=== PATIENT | female | born 1980 | race American Indian/Alaskan Native ===

== ENCOUNTER 2020-08-31 06:07 | Day surgery (SDC) | payer MEDICAID ==
[~2020-08-31 06:07] MED LIST: ACETAMINOPHEN 500 MG TAB PO SCH; CELECOXIB 200 MG CAP PO NR; GABAPENTIN 300 MG CAP PO NR; LACTATED RINGERS 1,000 ML IV SCH; MIDAZOLAM 2 MG/2 ML INJ IV NR; SCOPOLAMINE TRANSDERMAL PATCH 72 HR TD NR; fentaNYL 100 MCG/2 ML INJ IV PRN
[2020-08-31] MEDS ORDERED: LIDOCAINE (1%) 10 MG/1 ML VIAL 20 ML MDV ONE (06:29)
[2020-08-31] MEDS ORDERED: BUPIVACAINE/PF (0.25%) 2.5 MG/ML 30 ML VIAL INFILTRATI ONE ×3 (06:29→07:59)
[2020-08-31] MEDS ORDERED: ceFAZolin/Water 2 GM/20 ML 2 GM/20 ML SYRINGE IV NR (07:00)
--- NOTE | 2020-08-31 07:14 | Anesthesia Consultation ---
Anesthesia Consult and Med Hx Date of service: 08/31/20 - Airway Anesthetic Teeth Evaluation: Good ROM Head & Neck: Adequate Mental/Hyoid Distance: Adequate Mallampati Class: Class II Intubation Access Assessment: Good - Pulmonary Exam CTA: Yes - Cardiac Exam Cardiac Exam: RRR - Pre-Operative Health Status ASA Pre-Surgery Classification: ASA1 Proposed Anesthetic Plan: General - Pulmonary Hx Smoking: No Hx Sleep Apnea: Yes (DX SLEEP APNEA-RESOLVED 2-3 YRS AGO) - Cardiovascular System Hx Hypertension: No - Central Nervous System Hx Psychiatric Problems: No - Other Systems Hx Cancer: No Hx Obesity: Yes
--- NOTE | 2020-08-31 07:15 | Anesthesia Day of Surgery ---
Anesthesia Day of Surgery - Day of Surgery Patient Examined: Yes Patient H&P Reviewed: Yes Patient is NPO: Yes
[2020-08-31] MEDS ORDERED: ONDANSETRON 4 MG/2 ML INJ IV PRN (07:26)
[2020-08-31] MEDS ORDERED: HYDROmorphone 1 MG/1 ML INJ IV PRN (07:26)
[2020-08-31] MEDS ORDERED: MIDAZOLAM 2 MG/2 ML INJ ONE (07:26)
[2020-08-31] MEDS ORDERED: propofoL 200 MG/20 ML VIAL IV ONE (07:27)
[2020-08-31] MEDS ORDERED: fentaNYL 100 MCG/2 ML INJ ONE (07:27)
[2020-08-31] MEDS ORDERED: KETOROLAC 30 MG/1 ML INJ ONE (07:30)
[2020-08-31] MEDS ORDERED: dexAMETHasone 20 MG/5 ML VIAL ONE (07:30)
[2020-08-31] MEDS ORDERED: ONDANSETRON 4 MG/2 ML INJ ONE (07:30)
[2020-08-31] MEDS ORDERED: LIDOCAINE (1%) 10 MG/1 ML VIAL 20 ML MDV INFILTRATI ONE ×2 (07:58)
--- NOTE | 2020-08-31 08:35 | Short Stay Summary ---
Short Stay Documentation Date of service: 08/31/20 - History Principal diagnosis: umbilical hernia H&P: obtained from office - Allergies and Medications Current Medications: Allergies No Known Allergies Allergy (Verified 08/23/20 14:07) Home Medications Medication Instructions Recorded Confirmed Last Taken Type No Known Home Medications [No 08/23/20 08/31/20 Unknown History Reported Home Medications] Active Medications Acetaminophen (Tylenol) 1,000 mg PO PREOP MANDA Stop: 08/31/20 20:00 Last Admin: 08/31/20 07:15 Dose: 1,000 mg Documented by: Celecoxib (Celebrex) 200 mg PO PREOP NR Stop: 08/31/20 20:00 Last Admin: 08/31/20 07:15 Dose: 200 mg Documented by: Fentanyl (Sublimaze) 100 mcg IV ONCE PRN PRN Reason: sedation for nerve block Stop: 08/31/20 20:00 Gabapentin (Gabapentin) 600 mg PO PREOP NR Stop: 08/31/20 20:00 Last Admin: 08/31/20 07:15 Dose: 600 mg Documented by: Hydromorphone HCl (Dilaudid) 0.5 mg IV Q10MIN PRN PRN Reason: Pain , Severe (7-10) Lactated Ringer's (Lactated Ringers) 1,000 mls @ 100 mls/hr IV DIRECT MANDA Stop: 08/31/20 23:59 Last Admin: 08/31/20 07:20 Dose: 100 mls/hr Documented by: Cefazolin Sodium (Ancef/Sterile Water 2 Gm/20 Ml) 2 gm in 20 mls @ 80 mls/hr IV PREOP NR Stop: 08/31/20 20:00 Midazolam HCl (Versed) 2 mg IV PREOP NR Stop: 08/31/20 20:00 Ondansetron HCl (Zofran) 4 mg IV ONCE PRN PRN Reason: Nausea And Vomiting Scopolamine (Transderm-Scop) 1 each TD PREOP NR Stop: 08/31/20 23:00 Last Admin: 08/31/20 07:15 Dose: 1 each Documented by: - Brief post op/procedure progress note Date of procedure: 08/31/20 Pre-op diagnosis: umbilical hernia Post-op diagnosis: same Procedure: open primary repair of umbilical hernia Anesthesia: GETA, local Findings: <0.5cm umbilical hernia defect Surgeon: JAYDE FLEMING Estimated blood loss: minimal Pathology: none Specimen disposition: to lab Condition: stable - Hospital course Hospital course: Pt observed in PACU and discharged to home in stable condition when criteria met - Disposition Condition at discharge: Good Disposition: DC-01 TO HOME OR SELFCARE Short Stay Discharge Plan Activity: other (see printed discharge instructions) Diet: regular Wound: open to air, per your surgeon's advice Additional Instructions: SEE PRINTED DISCHARGE INSTRUCTIONS Follow up with: YADI BALDERAS MD [Primary Care Provider] - 7 Days JAYDE FLEMING DO [Staff Physician] - 14 Days () Prescriptions: Ibuprofen [Motrin 800 MG tab] 800 mg PO Q8HR PRN #30 tablet PRN Reason: Pain, Moderate (4-6) HYDROcodone/APAP 5-325 [Aldrich 5/325] 1 each PO Q6HR PRN #20 tablet PRN Reason: Pain , Severe (7-10)
[2020-08-31] MEDS ORDERED: MEPERIDINE 25 MG/1 ML INJ IV PRN (08:51)
[2020-08-31] MEDS ORDERED: HYDROcodone/ACETAMINOPHEN 5-325 MG TAB PO PRN (09:08)
[2020-08-31 10:02] VITALS: BP 123/56
--- NOTE | 2020-08-31 10:59 | Post Anesthesia Evaluation ---
- Post Anesthesia Evaluation Patient Participated: Yes Airway Patent: Yes Stable Respiratory Function: Yes Nausea/Vomiting: No Temp > 96.8F: Yes Pain Manageable: Yes Adequeate Hydration: Yes Anesthesia Complications: No
--- NOTE | 2020-08-31 13:38 | Operative Report ---
Operative Report Operative Report: Date of procedure: 08/31/20 Pre-op diagnosis: umbilical hernia Post-op diagnosis: same Procedure: open primary repair of umbilical hernia Anesthesia: GETA, local Findings: <0.5cm umbilical hernia defect Surgeon: JAYDE FLEMING Estimated blood loss: minimal Pathology: none Specimen disposition: to lab Condition: stable Hospital course: Pt observed in PACU and discharged to home in stable condition when criteria met HPI indication: Patient is a 39 yo F who presented to the surgery clinic as a referral from Dr. Valverde with an umbilical hernia. The patient was concerned and wanted this addressed. The hernia defect was palpable and measured 0.5 cm. The indications for surgery were discussed with patient and she was given the option for surgery vs observation. She elected to proceed to surgical repair. As the hernia was very small I discussed with the patient the liklihood of closing the defect with suture. The use of mesh was also discussed as a possibility if the defect was found to be larger than anticipated. All risk, benefits, alternatives to surgery discussed with patient questions answered. Consent was obtained. Procedure in detail: Patient was identified in the preoperative area, taken back to the operating room and placed on the operating room table in supine position. After anesthesia was induced the abdomen was prepped and draped in usual sterile fashion. Timeout performed. Skin was anesthetized with local anesthetic. A semilunar incision was made at the inferior aspect of the umbilicus using a 15 blade. Dissection was carried down through skin and subcutaneous tissue using Bovie electrocautery until the fascia was encountered. A tiny, <0.5cm defect was identified in the fascia to the left of the umbilical stalk without a defined sac. As the fascial defect was so small, it was elected to repair this primarily with suture. A figure of 8, 0-vicryl stitch was placed and adequately approximated the fascia without tension. The wound was irrigated and hemostasis very carefully ensured. The deep dermal layer was then closed using 3-0 Vicryl interrupted sutures. The skin was approximated using 4-0 Monocryl subcuticular running stitch and skin glue. After the glue was dry a 4 x 4 fluff gauze was placed in the umbilicus and secured with a Tegaderm. At the end of the case, all sponge, instrument, sharp counts were correct x2. The patient was awoken from anesthesia extubated and taken to PACU in stable condition.
== END 2020-08-31 06:08 | disposition home or self-care (01) ==
LOC: OR 06:07
PROVIDERS: ATTEND Surgery
DX: K42.9 Umbilical hernia without obstruction or gangrene (principal); Z20.828 Contact with and (suspected) exposure to other viral communicable diseases; G43.909 Migraine, unspecified, not intractable, without status migrainosus; E66.9 Obesity, unspecified; G47.30 Sleep apnea, unspecified; Z79.899 Other long term (current) drug therapy; Z98.890 Other specified postprocedural states; Z68.21 Body mass index [BMI] 21.0-21.9, adult; Z83.3 Family history of diabetes mellitus; Z82.5 Family history of asthma and other chronic lower respiratory diseases; Z82.49 Family history of ischemic heart disease and other diseases of the circulatory system
CPT/HCPCS: 49585; 81025; J0690; J1100; J1885; J2175; J2250; J2405; J2704; J3010; J7120; U0003